=== PATIENT | female | born 1995 | race Caucasian/White ===

== ENCOUNTER → 2020-10-28 | Outpatient (CLI) | payer BC, OTHER | LOC: LAB 10:34 | DX: N91.2 Amenorrhea, unspecified (principal); N92.6 Irregular menstruation, unspecified | CPT/HCPCS: 36415; 84702 ==

== ENCOUNTER → 2021-03-14 | Outpatient (CLI) | payer BC | LOC: LAB 12:02 | DX: Z32.00 Encounter for pregnancy test, result unknown (principal) | CPT/HCPCS: 36415; 36591; 84702 ==

== ENCOUNTER → 2021-03-19 | Outpatient (CLI) | payer BC | LOC: LAB 17:52 | DX: Z32.00 Encounter for pregnancy test, result unknown (principal) | CPT/HCPCS: 36415; 84702 ==

== ENCOUNTER 2021-10-27 10:22 | Outpatient (CLI) | payer BC ==
[2021-10-27] MEDS ORDERED: MACROBID 100 M100 MG PO (13:28)
== END 2021-10-27 13:49 | disposition home or self-care (01) ==
LOC: GENOP 10:22
DX: O44.13 Complete placenta previa with hemorrhage, third trimester (principal); O23.13 Infections of bladder in pregnancy, third trimester; N30.90 Cystitis, unspecified without hematuria; O24.415 Gestational diabetes mellitus in pregnancy, controlled by oral hypoglycemic drugs; O99.343 Other mental disorders complicating pregnancy, third trimester; F41.9 Anxiety disorder, unspecified; O99.333 Smoking (tobacco) complicating pregnancy, third trimester; F17.200 Nicotine dependence, unspecified, uncomplicated; Z88.1 Allergy status to other antibiotic agents; Z79.84 Long term (current) use of oral hypoglycemic drugs; Z3A.35 35 weeks gestation of pregnancy
CPT/HCPCS: 81001; 96360; 96361

== ENCOUNTER 2021-11-04 05:51 | Inpatient (IN) | payer BC ==
[~2021-11-04] VITALS: Ht 162.6 cm; Wt 88.0 kg
[~2021-11-04 05:51] MED LIST: MACROBID 100 M100 MG PO
[2021-11-04] MEDS ORDERED: METFORMIN HCL1000 MG PO (06:32)
[2021-11-04] MEDS ORDERED: PRENATAL VITAM1 EAC8 PO (06:33)
[2021-11-04] MEDS ORDERED: CETIRIZINE HCL10 MG PO (06:33)
[2021-11-04] MEDS ORDERED: FAMOTIDINE20 MG PO (06:33)
[2021-11-04] MEDS ORDERED: SERTRALINE HCL50 MG PO (06:33)
[2021-11-04] MEDS ORDERED: UNISOM25 MG PO (06:36)
[2021-11-04 06:44] LABS: HEMOGLOBIN 12.2 gm/dl (12.3-15.3); RED BLOOD COUNT 4.06 M/UL (4.00-5.10); WHITE BLOOD COUNT 11.7 K/UL (4.5-11.0)
[2021-11-04 07:09] LABS: BUN/CREATININE RATIO 16 (0-10)
[2021-11-04] MEDS ORDERED: HYDROCODON-ACE1 EAC6 PO (08:50)
[2021-11-04] MEDS ORDERED: COLACE 100MG C100 MG PO (08:50)
[2021-11-04] MEDS ORDERED: IBUPROFEN600 MG PO (08:50)
[2021-11-05 02:23] LABS: HEMOGLOBIN 10.1 gm/dl (12.3-15.3)
[2021-11-06] MEDS ORDERED: HEMOCYTE324 MG PO (11:29)
== END 2021-11-06 17:37 | disposition home or self-care (01) | DRG 806 ==
LOC: OB 05:51
PROVIDERS: ADMIT Obstetrics & Gynecology
PROC: 4A1HXCZ Monitoring of Products of Conception, Cardiac Rate, External Approach (ICD-10-PCS; 2021-11-04)
PROC: 10E0XZZ Delivery of Products of Conception, External Approach (ICD-10-PCS; principal; 2021-11-04 08:50)
DX: O44.43 Low lying placenta NOS or without hemorrhage, third trimester (principal); O98.52 Other viral diseases complicating childbirth; Z37.0 Single live birth; Z20.822 Contact with and (suspected) exposure to COVID-19; O24.425 Gestational diabetes mellitus in childbirth, controlled by oral hypoglycemic drugs; B00.9 Herpesviral infection, unspecified; Z3A.37 37 weeks gestation of pregnancy; O99.284 Endocrine, nutritional and metabolic diseases complicating childbirth; E28.2 Polycystic ovarian syndrome; Z86.73 Personal history of transient ischemic attack (TIA), and cerebral infarction without residual deficits; Z83.3 Family history of diabetes mellitus; Z82.49 Family history of ischemic heart disease and other diseases of the circulatory system; Z80.3 Family history of malignant neoplasm of breast
CPT/HCPCS: 36415; 80053; 81001; 82800; 82962; 85014; 85018; 85025; C9113; J0690; J1170; J1200; J2250; J2370; J2405; J2590; J7030; J7120; U0002